=== PATIENT | male | born 1990 | race Caucasian/White ===

== ENCOUNTER 2018-08-28 09:41 | Emergency (ER) | payer MEDICAID ==
[~2018-08-28] VITALS: Ht 175.3 cm; Wt 74.6 kg
[2018-08-28 09:44] VITALS: Ht 175.3 cm; Wt 74.6 kg
[2018-08-28 11:38] VITALS: BP 105/61
== END 2018-08-28 12:16 | disposition home or self-care (01) ==
LOC: ED 09:41
DX: L02.31 Cutaneous abscess of buttock (principal); L03.317 Cellulitis of buttock; K62.89 Other specified diseases of anus and rectum
CPT/HCPCS: 90715; J2001; J2270; Q0162